=== PATIENT | male | born 1970 | race Caucasian/White ===

== ENCOUNTER 2024-04-17 08:36 | Day surgery (SDC) | payer OTHER, SELFPAY ==
--- NOTE | 2024-04-17 | PATH_ITS ---
[facility] Accession Number: [id number] No. of containers..01 Tissue . 01 Material submitted: . colon - DESCENDING POLYP . 01 Diagnosis: DESCENDING POLYP: Tubular adenoma. STO 04/24/2024 1502 Local . 01 Electronically signed: . Deondre Cotter MD, Pathologist NPI- [id number] . 01 Gross description: . DESCENDING POLYP: Received in formalin are 2 fragment(s) of guerrero, soft tissue measuring 0.2 x 0.1 x 0.1 cm to 0.3 x 0.3 x 0.3 cm submitted entirely in 1 cassette(s) /JANAE 04/24/2024 1502 Local . 01 Pathologist provided ICD-10: D12.4 . 01 CPT . 453807 Specimen Comment: A courtesy copy of this report has been sent to [phone] Performed at: [address] [facility] [id number] MD Deondre Cotter MD Phone: [phone]
[2024-04-17] MEDS: LACTATED RINGERS 1,000 ML 42 ML IV (08:49)
[2024-04-17 09:06] VITALS: BP 167/93; PULSE 72; RESP 18; TEMP 36; O2SAT 98
--- NOTE | 2024-04-17 09:31 | P.HP_ITS ---
History of Present Illness History of Present Illness Date Patient Seen: 04/17/24 Time Patient Seen: 09:31 Chief complaint: Screening Colonoscopy Narrative: 54-year-old man here for 1st time screening colonoscopy. No family history of intestinal malignancy. No abdominal concerns today. PENDING SALE TO [facility] Medical History Right shoulder pain Social History Smoking Status: Former smoker alcohol intake: current Meds Home Medications and Allergies Allergies Allergy/AdvReac Type Severity Reaction Status Date / Time No Known Drug Allergies Allergy Verified 04/17/24 08:51 Exam Vital Signs (past 8 hours): - 04/17/24 09:06 Temperature 96.8 F L Pulse Rate 72 Respiratory Rate 18 Blood Pressure 167/93 H Pulse Oximetry 98 Oxygen Delivery Method Room Air Oxygen Delivery Method Room Air Narrative Exam Narrative: General adult man alert oriented no acute distress Chest nonlabored respiration Extremities warm well perfused Assessment & Plan Assessment & Plan narrative: The patient requires colorectal screening and colonoscopy is recommended. Technical details were discussed. Risks, benefits, alternatives explained. Risks including but not limited to myocardial infarction, aspiration, bleeding, pain, missed lesion, incomplete examination, need for further radiographic studies, intestinal injury, and need for major abdominal surgery were discussed. All questions were answered to their satisfaction, and they are in agreement with this plan.
[2024-04-17 10:04] VITALS: BP 143/90; PULSE 70; RESP 18; TEMP 36.6; O2SAT 96
--- NOTE | 2024-04-17 10:07 | P.OP.COLON_ITS ---
Operative Date/Time/Diagnoses Date of procedure: 04/17/24 Time of procedure: 10:07 Pre-op diagnosis: Screening colonoscopy Post-op diagnosis: other (Colonic polyp x1) Procedure & Clinicians Study performed: Screening colonoscopy Same procedure as scheduled: Yes Indications: Colorectal screening Surgeon: José Miguel Hernandez Procedure Notes Procedure in detail: The history and physical was performed/updated and the patient is ASA class is 2. The procedure was discussed in detail with the patient. Potential risks complications including infection, bleeding, missed diagnosis, perforation, need for surgery, and were explained. Their questions were answered and informed consent was obtained. Patient was brought to the procedure room and placed standard monitoring equipment. The patient's vital signs were monitored continuously throughout the entire procedure. Prior to starting time-out was performed. The patient was placed in the left lateral recumbent position. Procedural sedation was administered by anesthesia. Examination began with a thorough inspection of the perianal area there was no evidence of fissures, fistulae, external hemorrhoids or cutaneous malignancy. The colonoscopy scope was then placed into the anal c anal and was advanced to the cecum, which was identified by the ileocecal valve, the appendiceal orifice and the confluence of the taenia. The scope was then slowly withdrawn examining colon thoroughly in all directions, irrigating it of any residual stool. The scope was retroflexed within the rectum The patient tolerated the procedure well. They will be discharged once criteria are met. The prep was of good/excellent quality. The withdrawl time was 7 minutes. FINDINGS * Descending colon 3 mm polyp removed with biopsy forceps * Diverticulosis of sigmoid colon Specimen(s): other (Descending colon polyp) Impression: Colonic polyp x1 Post-procedure Recommendations: High fiber diet Plan for aftercare: Follow-up is dependent on pathology findings likely 5 years Disposition: same day surgery
[2024-04-17 10:09] VITALS: BP 142/88; PULSE 65; RESP 16; O2SAT 96
[2024-04-17 10:14] VITALS: BP 130/87; PULSE 63; RESP 14; TEMP 36.6; O2SAT 98
[2024-04-17 10:21] VITALS: BP 137/77; PULSE 68; RESP 16; O2SAT 98
== END 2024-04-17 10:33 | disposition home or self-care (01) ==
PROVIDERS: PCP Family Medicine; Referring Provider Surgery; Visit Provider Surgery
PROC: 0DJD8ZZ Inspection of Lower Intestinal Tract, Via Natural or Artificial Opening Endoscopic (ICD-10-PCS; CPT 45378; principal; 2024-04-17 09:30)
DX: Z12.11 Encounter for screening for malignant neoplasm of colon (principal); K57.30 Diverticulosis of large intestine without perforation or abscess without bleeding; D12.4 Benign neoplasm of descending colon
CPT/HCPCS: 45380; J2704